=== PATIENT | female | born 1965 | race Caucasian/White ===

== ENCOUNTER 2024-08-25 14:59 | Day surgery (SDC) | payer MEDICARE ==
[2024-08-25] MEDS ORDERED: LIDOCAINE HCL 1% 50 MG/5 ML VL IJ ONE (15:00)
[2024-08-25] MEDS ORDERED: SYNVISC 16 MG/2 ML SYRINGE IU ONE (15:00)
--- NOTE | 2024-08-25 20:06 | XRAY ---
Indication: Right knee injection. Intraoperative fluoroscopy provided for 9 seconds. Single digital spot image submitted for interpretation demonstrates needle tip projecting over right femur intercondylar notch. Small amount of contrast injected for needle tip placement. Correlate with intraoperative findings/report.
--- NOTE | 2024-08-25 20:07 | XRAY ---
Indication: Left knee injection. Intraoperative fluoroscopy provided for 7 seconds. Single digital spot image submitted for interpretation demonstrates needle tip projecting over left femur intercondylar notch. Small amount of contrast injected for needle tip placement. Correlate with intraoperative findings/report. Incidental incompletely visualized lower femur orthopedic hardware.
--- NOTE | 2024-08-26 08:52 | XRAY ---
9 seconds of fluoroscopy was used in surgery for a right intra-articular knee injection.
--- NOTE | 2024-08-26 08:52 | XRAY ---
7 seconds of fluoroscopy was used in surgery for a left intra-articular knee injection.
== END 2024-08-25 17:52 | disposition home or self-care (01) ==
LOC: SDC-PAIN 14:59
PROVIDERS: ATTEND Psychiatry & Neurology Pain Medicine
DX: M17.0 Bilateral primary osteoarthritis of knee (principal); E11.9 Type 2 diabetes mellitus without complications
CPT/HCPCS: 20610; 73560; 77002; 82947; J7325; Q9966

== ENCOUNTER 2024-09-01 15:12 | Day surgery (SDC) | payer MEDICARE ==
[2024-09-01] MEDS ORDERED: LIDOCAINE HCL 1% 50 MG/5 ML VL IJ ONE (15:13)
[2024-09-01] MEDS ORDERED: SYNVISC 16 MG/2 ML SYRINGE IU ONE (15:13)
--- NOTE | 2024-09-01 21:20 | XRAY ---
Indication: Right knee injection. Intraoperative fluoroscopy provided for 10 seconds. Single digital spot image submitted for interpretation demonstrates needle tip projecting over right femur intercondylar notch. Small amount of contrast injected for needle tip placement. Correlate with intraoperative findings/report.
--- NOTE | 2024-09-01 21:21 | XRAY ---
Indication: Left knee injection. Intraoperative fluoroscopy provided for 9 seconds. Single digital spot image submitted for interpretation demonstrates needle tip projecting over left femur intercondylar notch. Small amount of contrast injected for needle tip placement. Correlate with intraoperative findings/report. Incidental incompletely visualized distal femur intramedullary stella/transverse screws
--- NOTE | 2024-09-03 10:12 | XRAY ---
10 seconds of fluoroscopy was used in surgery for a right intra-articular knee injection.
--- NOTE | 2024-09-03 10:12 | XRAY ---
9 seconds of fluoroscopy was used in surgery for a left intra-articular knee injection.
== END 2024-09-01 17:56 | disposition home or self-care (01) ==
LOC: SDC-PAIN 15:12
PROVIDERS: ATTEND Psychiatry & Neurology Pain Medicine
DX: M17.0 Bilateral primary osteoarthritis of knee (principal); E11.9 Type 2 diabetes mellitus without complications
CPT/HCPCS: 20610; 73560; 77002; 82947; J7325; Q9966

== ENCOUNTER 2025-03-02 07:26 | Day surgery (SDC) | payer MEDICARE ==
[2025-03-02] MEDS ORDERED: Sodium Chloride 0.9(Preservative Free) 10 ML IJ ONE (07:27)
[2025-03-02] MEDS ORDERED: propofoL IV ONE ×2 (09:28→09:39)
--- NOTE | 2025-03-02 10:24 | XRAY ---
Indication: Right L4-S1 transforaminal VANGIE. Intraoperative fluoroscopy provided for 56 seconds. 4 digital spot images submitted for interpretation demonstrates posterior needle tips projecting over expected right L4 and L5 nerve roots. Small amount of contrast injected for needle tip placement. Correlate with intraoperative findings/report.
[2025-03-02] MEDS ORDERED: Lactated Ringers 1,000 ML IV ONE (11:25)
--- NOTE | 2025-03-02 12:00 | XRAY ---
56 seconds of fluoroscopy was used in surgery for a right L4-S1 transforaminal VANGIE.
== END 2025-03-02 10:00 | disposition home or self-care (01) ==
LOC: SDC-PAIN 07:26
PROVIDERS: ATTEND Psychiatry & Neurology Pain Medicine
DX: M54.16 Radiculopathy, lumbar region (principal); E11.9 Type 2 diabetes mellitus without complications